=== PATIENT | female | born 1955 | race Two or more races ===

== ENCOUNTER 2019-01-10 09:14 | Emergency (ER) | payer MEDICAID ==
[~2019-01-10] VITALS: Ht 157.5 cm; Wt 60.8 kg
[2019-01-10 09:17] VITALS: BP 135/79
--- NOTE | 2019-01-10 09:25 | NUR ---
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
[2019-01-10] MEDS ORDERED: TONO PEN in ED SUPPLY ONICELL 1 EA MC ONE (09:41)
[2019-01-10] MEDS ORDERED: FLUORESCEIN SODIUM OPHTH 1 EA STRIP ONE (09:42)
[2019-01-10] MEDS ORDERED: TETRACAINE HCL 0.5% OPHTALMIC 15 ML BOTTLE OP ONE (10:00)
[2019-01-10] MEDS ORDERED: FLUORESCEIN SODIUM OPHTH 1 EA STRIP OP ONE (10:00)
--- NOTE | 2019-01-10 10:57 | NUR ---
Patient discharged to home in stable condition. Written and verbal after care instructions given. Patient verbalizes understanding of instruction.
== END 2019-01-10 10:58 | disposition home or self-care (01) ==
LOC: ER 09:17
DX: J30.9 Allergic rhinitis, unspecified (principal); H57.11 Ocular pain, right eye; E03.9 Hypothyroidism, unspecified